=== PATIENT | female | born 1990 ===

== ENCOUNTER 2020-04-16 15:59 | Outpatient (REF) | payer MEDICAID, SELFPAY | END 2020-04-16 16:00 | disposition home or self-care (01) | LOC: HO.LAB 15:59 | PROVIDERS: PCP Nurse Practitioner Family; Visit Provider Internal Medicine | DX: Z20.828 Contact with and (suspected) exposure to other viral communicable diseases (principal) | CPT/HCPCS: C9803; U0003 ==

== ENCOUNTER 2020-08-15 12:30 | Outpatient (REF) | payer MEDICAID, SELFPAY | END 2020-08-15 12:31 | disposition home or self-care (01) | LOC: HO.LAB 12:30 | PROVIDERS: Visit Provider Internal Medicine | DX: Z20.822 Contact with and (suspected) exposure to COVID-19 (principal) | CPT/HCPCS: 36415; C9803; U0003; U0005 ==

== ENCOUNTER 2023-05-18 08:55 | Outpatient (REF) | payer MEDICAID, SELFPAY ==
[2023-05-21 07:54] LABS: TS Negative Control Passed; TS Panel A 1; TS Panel B 0; TS Positive Control Passed; TSpotTB Negative (Negative)
== END 2023-05-18 08:56 | disposition home or self-care (01) ==
LOC: HO.LAB 08:55
PROVIDERS: PCP Internal Medicine; Visit Provider Internal Medicine
DX: Z11.1 Encounter for screening for respiratory tuberculosis (principal)
CPT/HCPCS: 36415; 86481

== ENCOUNTER 2023-07-20 10:59 | Outpatient (REF) | payer MEDICAID, SELFPAY ==
[2023-07-20 13:16] LABS: MANUAL DIFF FLAG NO
[2023-07-20 13:33] LABS: Basophils Percent Auto 0.5 % (0-2); Eosinophils Absolute Auto 0.1 X10*3/uL (0.0-0.4); Hematocrit 41.3 % (37.0-47.0); Hemoglobin 14.1 g/dl (12.0-16.0); Imm Gran Abs Auto 0.01 X10*3/uL (0.00-0.03); Imm Gran Pct Auto 0.2 % (0.0-0.4); Lymphocytes Absolute Auto 2.2 X10*3/uL (1.2-4.9); Mean Corpuscular HGB Conc 34.1 g/dl (31.0-35.0); Mean Corpuscular Hemoglobin 31.8 pg (27.0-33.0); Mean Corpuscular Volume 93.2 fL (80.0-98.0); Mean Platelet Volume 11.4 fL (9.4-12.3); Monocytes Absolute Auto 0.6 X10*3/uL (0.1-1.2); Monocytes Percent Auto 10.1 % (2-11); Neutrophils Absolute Auto 3.2 x10*3/uL (2.0-8.3); Neutrophils Percent Auto 52.2 % (45-73); Platelet Count 303 X10*3/uL (160-400); Red Blood Count 4.43 X10*6/uL (4.20-5.50); Red Cell Distribution Width 12.8 % (11.0-16.0); White Blood Count 6.1 X10*3/uL (4.8-10.8)
[2023-07-20 13:53] LABS: Alanine Aminotransferase 13 U/L (0-31); Albumin Level 4.4 g/dL (3.5-5.0); Alkaline Phosphatase 53 U/L (39-117); Anion Gap 13 (12-20); Aspartate Amino Transferase 17 U/L (5-31); Bilirubin Direct 0.2 mg/dL (0.0-0.5); Bilirubin Total 0.5 mg/dL (0.0-1.0); Blood Urea Nitrogen 4 mg/dL (9-16); Calcium 9.7 mg/dL (8.4-10.2); Carbon Dioxide 22 mmol/L (22-29); Chloride 109 mmol/L (96-108); Cholesterol 143 mg/dL (<200); Estimated Glomerular Filt Rate > 60; Glucose Random 82 mg/dL (60-115); HDL Cholesterol 35 mg/dL (>40); LDL Cholesterol Calculated 95 mg/dL (<100); Potassium 3.7 mmol/L (3.3-5.1); Sodium 140 mmol/L (135-145); Total Protein 7.4 g/dL (6.5-8.0); Triglycerides 67 mg/dL (<150)
[2023-07-20 13:56] LABS: Vitamin D 25-OH Total 29.8 ng/mL (>30)
[2023-07-20 14:00] LABS: Estimated Average Glucose 88 mg/dL; Hemoglobin A1c % 4.7 % (<6.0)
[2023-07-21 04:02] LABS: HIV AB/AG Nonreactive (Nonreactive); HIV Num 1 0.06 S/CO (0.00-0.99); ~HepC Num1 0.34 S/CO (0.00-0.79); ~Hepatitis C Antibody Nonreactive (Nonreactive)
== END 2023-07-20 11:00 | disposition home or self-care (01) ==
LOC: HO.HHCL 10:59
PROVIDERS: Visit Provider Internal Medicine
DX: Z00.00 Encounter for general adult medical examination without abnormal findings (principal)
CPT/HCPCS: 36415; 80048; 80061; 80076; 82306; 83036; 85025; 86803; 87389

== ENCOUNTER 2024-05-16 10:56 | Emergency (ER) | payer MEDICAID, SELFPAY ==
--- NOTE | ~2024-05-16 | XR_ITS ---
EXAMINATION: XR KNEE, RIGHT CLINICAL INFORMATION: fall COMPARISON: None available. TECHNIQUE: Four views of the right knee. FINDINGS: No fracture or joint effusion. Alignment is anatomic. Joint spaces are maintained. No abnormal soft tissue calcification. XR/XR knee RT 4V IMPRESSION: Normal right knee. Electronically signed by: Leslie Spaulding MD 05/16/2024 03:04 PM EST
--- NOTE | ~2024-05-16 | XR_ITS ---
EXAMINATION: XR KNEE, LEFT CLINICAL INFORMATION: fall COMPARISON: None available. TECHNIQUE: Four views of the left knee. FINDINGS: No fracture or joint effusion. Alignment is anatomic. Joint spaces are maintained. No abnormal soft tissue calcification. XR/XR knee LT 4V IMPRESSION: Normal left knee. Electronically signed by: Leslie Spaulding MD 05/16/2024 02:50 PM EST
--- NOTE | ~2024-05-16 | CT_ITS ---
EXAMINATION: CT KNEE WITHOUT CONTRAST, RIGHT CLINICAL INFORMATION: Pain. Question tibial fracture. COMPARISON: Right knee radiographs dated 05/16/2024. TECHNIQUE: Contiguous axial CT images of the right knee were obtained without contrast. Sagittal and coronal reformats were provided and reviewed. This CT examination was performed using dose optimization techniques as appropriate, variously including the following: *Automated exposure control. *Adjustment of mA and/or kV according to patient size (this includes techniques or standardized protocols for targeted exams where dose is matched to indication/reason for exam; i.e. extremities or head). *Use of iterative reconstruction technique. DLP: 205 mGy-cm FINDINGS: No acute fracture or dislocation. Focal cortical undulation at the central aspect of the medial tibial plateau thought to represent normal variation versus sequela of remote trauma. No joint effusion or evidence to suggest an acute subchondral fracture. No joint space narrowing or marginal osteophytes. No concerning lytic or blastic osseous lesion. Normal patellofemoral malalignment. No soft tissue mass or fluid collection. Mild anterior subcutaneous edema without organized fluid collection or hematoma formation. Visualized muscles and tendons are grossly intact; however, evaluation is limited on CT examination. CT/CT knee RT wo IV con IMPRESSION: 1. No acute fracture or dislocation. 2. Mild anterior subcutaneous edema without organized fluid collection or hematoma formation. Electronically signed by: Darrel Post MD 05/16/2024 05:03 PM SURINDER
[2024-05-16 11:04] VITALS: BP 123/79; PULSE 82; RESP 18; TEMP 37.5; O2SAT 100; BMI 36.5
--- NOTE | 2024-05-16 14:32 | ED.FALL ---
HPI - Fall General Chief Complaint: Fall Stated Complaint: Bilateral knee pain Time Seen by Provider: 05/16/24 14:24 Source: patient Mode of arrival: ambulatory Limitations: no limitations History of Present Illness ED Provider: ELIS RUIZ PA-C HPI Narrative: 34 year old female with no significant past medical history presents to the ED today for evaluation of bilateral knee pain status post fall 5 days ago. Patient reports having to jump off of her bed to grab her cat however landed on her bilateral knees. Denies head strike or LOC. Denies anticoagulation. She was able to stand and ambulate after fall. Since this time, reports bruising and pain to the anterior aspects of bilateral knees. She reports pain on flexing the knees with minimal pain on extension. States she has been able to ambulate and work however her pain is worse by the end of the day. She has been taking extra strength Tylenol at home wtih some improvement. She states she has not had insurance until yesterday so she has not been medically evaluated for this. She also endorses mild discomfort to the outer aspect of her right shoulder. She states that she did not injure this during the fall however has been sleeping on her right side to compensate for her knee pain and states this may be aggravating her right shoulder. Denies any difficulty moving her right shoulder. Has been applying lidocane patches with improvement. Denies fever, chills, numbness, tingling, weakness to her extremities. Related Data Previous Rx's ?Medication ?Instructions ?Recorded lidocaine 5 % topical patch 1 patch topical DAILY #15 ea 05/16/24 (Lidoderm) naproxen 500 mg tablet 500 mg PO Q12H PRN pain (scale 05/16/24 score 1-3) #20 tabs prednisone 20 mg tablet 40 mg (2 x 20 mg) PO DAILY 5 days 05/16/24 #10 tabs Allergies Allergy/AdvReac Type Severity Reaction Status Date / Time No Known Allergies Allergy Verified 05/16/24 11:07 [No Known Allergies*] Review of Systems Review of Systems: Constitutional: No fever, chills, fatigue, night sweats, weight changes ENT/Mouth: No ear pain, hearing loss, nasal congestion, sinus pain, rhinorrhea, sore throat Eyes: No eye pain, swelling, redness, vision changes, discharge Cardio: No chest pain, palpitations, LAMAS, orthopnea, peripheral edema Pulm: No SOB, cough, sputum, wheezing, dyspnea, hemoptysis GI: No nausea, vomiting, hematemesis, abdominal pain, diarrhea, constipation, hematochezia, melena : No irregular bleeding, dysuria, frequency, urgency, hesitancy, hematuria, flank pain, urinary flow changes, urinary incontinence or retention MSK: No back pain, neck pain, joint pain, myalgias, +bilateral knee pain, +right shoulder pain Skin: No lesions, rashes Neuro: No weakness, numbness, paresthesias, LOC, dizziness, headache Psych: No anxiety/panic, depression, SI/HI, AH/VH All other systems reviewed and are negative. [facility] Social History Social History Advance Directives: No Advance Directives Information Provided: Yes Do you have a plan to hurt others: No Plan Physical Exam Vital Signs: Vital Signs: Last Vital Signs Temp 99.5 F 05/16/24 16:35 Pulse 82 05/16/24 16:35 Resp 18 05/16/24 16:35 BP 123/79 05/16/24 16:35 Pulse Ox 100 05/16/24 16:35 O2 Del Method Room Air 05/16/24 16:35 BMI result Body Mass Index 36.5 vital signs stable General: Well appearing, in no acute distress. Skin: Warm, dry, intact. No rashes or lesions. Head: Normocephalic, atraumatic. EENT: Hearing is intact b/l. Conjunctiva clear. Sclera is anicteric. PERRLA. EOM intact. Moist mucous membranes.? Neck: Supple without LAD. FROM. Trachea midline.? Cardiac: Chest wall symmetric. RRR Lungs: Normal respiratory effort without accessory muscle use. CTA bilaterally Back: No midline spinous or paraspinal tenderness. No step off deformity. Ext: +see photo of knees below. noted ecchymosis over bilateral knees, primarily to right. She can fully extend the knees, reports mild pain on flexion however can fully flex the knee. Sensation intact. She is diffusely tender to palpation without palpable deformity, crepitus. No overlying warmth. 2+ popliteal, DP and PT pulses intact. Cap refill less than 2 seconds. ambulating with slight limping gait. +FROM intact to right shoulder. no overlying skin changes/ deformity. non tender to palpation. Neuro: AOx3. Normal speech. Strength 5/5 intact throughout. No saddle anesthesia. Sensation intact to light touch. NV intact distally. Course Course Course Narrative: xrs of bilateral knees do not demonstrate fracture. ct right knee does not demonstrate acute fracture. There is mild anterior subcutaneous edema without fluid collection or hematoma. I discussed all work up results with patient. I Marquise wrapped both knees for compression. educated on RICE therapy. will send prednisone and naproxen to pharmacy for treatment. Patient has remained stable throughout ED visit today. Discussed worrisome signs and symptoms and when to return to the ED. All questions answered at this time. Patient is agreeable with disposition and stable for discharge. Procedures Orthopedic Splinting/Casting Injury #1: Side: right Lower Extremity Injury Location: knee Lower Extremity Immobilizer: Marquise wrap Injury #2: Side: left Lower Extremity Injury Location: knee Lower Extremity Immobilizer: Marquise wrap Medical Decision Making Medical Decision Making MDM Narrative: 34 year old female with no significant past medical history presents to the ED today for evaluation of bilateral knee pain status post fall 5 days ago. Vital signs stable. She is nontoxic appearing and in NAD. On exam, noted ecchymosis over bilateral knees, primarily to right. She can fully extend the knees, reports mild pain on flexion however can fully flex the knee. Sensation intact. She is diffusely tender to palpation without palpable deformity, crepitus. No overlying warmth. 2+ popliteal, DP and PT pulses intact. Cap refill less than 2 seconds. ambulating with slight limping gait. +FROM intact to right shoulder. no overlying skin changes/ deformity. non tender to palpation. Differential diagnosis includes contusion, hematoma, msk sprain/ strain, fracture, arthritis. Lower suspicion for dislocation. Unlikely NV compromise, compartment syndrome. Plan for imaging and re-evaluation. Differential Diagnosis Differential Diagnoses: The differential diagnosis associated with the presentation includes as above. Admission/Observation Not indicated. Independent Interpretation I performed an independent interpretation of an: Plain X-Ray Interpretation: XR bilateral knees without fractures CT right knee without fracture Radiology Impression Discussion of test interpretation with radiology: I have reviewed the radiologist's reading. Radiologist Impression: EXAMINATION: XR KNEE, LEFT CLINICAL INFORMATION: fall COMPARISON: None available. TECHNIQUE: Four views of the left knee. FINDINGS: No fracture or joint effusion. Alignment is anatomic. Joint spaces are maintained. No abnormal soft tissue calcification. XR/XR knee LT 4V IMPRESSION: Normal left knee. Electronically signed by: Leslie Spaulding MD 05/16/2024 02:50 PM EST RP EXAMINATION: XR KNEE, RIGHT CLINICAL INFORMATION: fall COMPARISON: None available. TECHNIQUE: Four views of the right knee. FINDINGS: No fracture or joint effusion. Alignment is anatomic. Joint spaces are maintained. No abnormal soft tissue calcification. XR/XR knee RT 4V IMPRESSION: Normal right knee. Electronically signed by: Leslie Spaulding MD 05/16/2024 03:04 PM EST RP EXAMINATION: CT KNEE WITHOUT CONTRAST, RIGHT CLINICAL INFORMATION: Pain. Question tibial fracture. COMPARISON: Right knee radiographs dated 05/16/2024. TECHNIQUE: Contiguous axial CT images of the right knee were obtained without contrast. Sagittal and coronal reformats were provided and reviewed. This CT examination was performed using dose optimization techniques as appropriate, variously including the following: *Automated exposure control. *Adjustment of mA and/or kV according to patient size (this includes techniques or standardized protocols for targeted exams where dose is matched to indication/reason for exam; i.e. extremities or head). *Use of iterative reconstruction technique. DLP: 205 mGy-cm FINDINGS: No acute fracture or dislocation. Focal cortical undulation at the central aspect of the medial tibial plateau thought to represent normal variation versus sequela of remote trauma. No joint effusion or evidence to suggest an acute subchondral fracture. No joint space narrowing or marginal osteophytes. No concerning lytic or blastic osseous lesion. Normal patellofemoral malalignment. No soft tissue mass or fluid collection. Mild anterior subcutaneous edema without organized fluid collection or hematoma formation. Visualized muscles and tendons are grossly intact; however, evaluation is limited on CT examination. CT/CT knee RT wo IV con IMPRESSION: 1. No acute fracture or dislocation. 2. Mild anterior subcutaneous edema without organized fluid collection or hematoma formation. Electronically signed by: Darrel Post MD 05/16/2024 05:03 PM EST RP Critical Care Time Critical Care Time Critical Care Time: No Discharge Plan Discharge Clinical Impression: Contusion of knee Patient Disposition: Home, Self-Care Instructions: Contusion in Adults (ED), R.I.C.E. Treatment (ED) Additional Instructions: The xrays of your knees are normal. No fracture. You were provided with Marquise wraps to help compress the knees and help with swelling/pain. As discussed, practice RICE therapy - rest, ice, compress, elevate. I have sent prednisone (steroid) to your pharmacy. Take this as prescribed over the next 5 days to help with swelling. I have also sent naproxen, an NSAID, to your pharmacy. Take this as needed for pain/discomfort. Do not take this with other NSAIDs such as ibuprofen as this can cause increased risk of GI bleeding. I have also sent lidocaine patches or your shoulder. Follow-up with your PCP as needed. Return with new or worsening symptoms. In the case of an emergency call 911. Prescriptions: New prednisone 20 mg tablet 40 mg PO DAILY 5 Days Qty: 10 0RF lidocaine [Lidoderm] 5 % adhesive patch,medicated 1 patch topical DAILY Qty: 15 0RF Rx Instructions: leave on most painful area for up to 12 hrs naproxen 500 mg tablet 500 mg PO Q12H PRN (Reason: pain (scale score 1-3)) Qty: 20 0RF Referrals: Dodie Gutierrez MD [Primary Care Provider] - Interventions: ED Discharge Assessment Last Done: 05/16/24 16:35 Discharge Date/Time: 05/16/24 16:36 Print Language: [place]ian
[2024-05-16 16:35] VITALS: BP 123/79; PULSE 82; RESP 18; TEMP 37.5; O2SAT 100
== END 2024-05-16 16:36 | disposition home or self-care (01) ==
PROVIDERS: Emergency Provider Emergency Medicine Emergency Medical Services; PCP Internal Medicine
DX: S80.01XA Contusion of right knee, initial encounter (principal); S80.02XA Contusion of left knee, initial encounter; M25.562 Pain in left knee; M25.561 Pain in right knee; W06.XXXA Fall from bed, initial encounter; Y93.89 Activity, other specified; Y92.89 Other specified places as the place of occurrence of the external cause; Y99.8 Other external cause status
CPT/HCPCS: 73564; 73700; 99282; 99284

== ENCOUNTER 2024-05-19 19:47 | Outpatient (REF) | payer MEDICAID, SELFPAY | END 2024-05-19 19:48 | disposition home or self-care (01) | LOC: HO.MRI 19:47 | PROVIDERS: PCP Internal Medicine; Visit Provider Family Medicine | DX: M23.51 Chronic instability of knee, right knee (principal); M25.561 Pain in right knee; G89.29 Other chronic pain | CPT/HCPCS: 73721 ==